=== PATIENT | female | born 1945 | race Caucasian/White ===

== ENCOUNTER → 2019-05-07 09:00 | Outpatient (BNVA) | payer MEDICARE, SELFPAY | PROVIDERS: Family Provider Family Medicine; PCP Nurse Practitioner Family; Visit Provider Nurse Practitioner Family | DX: Z12.39 Encounter for other screening for malignant neoplasm of breast (principal); Z13.820 Encounter for screening for osteoporosis; Z13.6 Encounter for screening for cardiovascular disorders; Z13.29 Encounter for screening for other suspected endocrine disorder; Z00.00 Encounter for general adult medical examination without abnormal findings; Z28.21 Immunization not carried out because of patient refusal; Z53.20 Procedure and treatment not carried out because of patient's decision for unspecified reasons | CPT/HCPCS: 80053; 80061; 84439; 84443 ==

== ENCOUNTER → 2019-05-14 08:59 | Outpatient (BNVA) | payer MEDICARE, SELFPAY | PROVIDERS: Family Provider Family Medicine; PCP Nurse Practitioner Family; Visit Provider Nurse Practitioner Family | DX: R73.9 Hyperglycemia, unspecified (principal) | CPT/HCPCS: 83036 ==

== ENCOUNTER 2019-06-23 14:30 | Outpatient (CLI) | payer MEDICARE, SELFPAY ==
--- NOTE | 2019-06-23 15:00 | MM_ITS ---
WS: [id number] BILATERAL DIGITAL SCREENING MAMMOGRAPHY WITH CAD CLINICAL INFORMATION: screening HISTORY: Screening mammogram. No current complaints. COMPARISON: None. TECHNIQUE: Bilateral CC and MLO views. FINDINGS: Scattered fibroglandular densities bilaterally. No suspicious focal mass, asymmetry, calcifications, or architectural distortion. No evidence of malignancy. Lucent centered calcification right breast. V ascular calcification. MM/[place] [id number] IMPRESSION: BI-RADS: 2-Benign FOLLOW UP: 1 Year Follow-up Recommend return to annual screening mammography.
== END 2019-06-23 14:31 | disposition home or self-care (01) ==
LOC: RADSHAW 14:35
PROVIDERS: PCP Nurse Practitioner Family; Visit Provider Nurse Practitioner Family
DX: Z12.31 Encounter for screening mammogram for malignant neoplasm of breast (principal)
CPT/HCPCS: 77067

== ENCOUNTER 2019-07-05 12:22 | Emergency (ER) | payer MEDICARE, SELFPAY ==
[2019-07-05 12:30] VITALS: BP 163/73; PULSE 68; RESP 14; TEMP 36.8; O2SAT 97; BMI 31.5
--- NOTE | 2019-07-05 12:42 | W.ED.GIBLEED ---
HPI - GI Bleed General: Chief complaint: GI Bleed Stated complaint: rectal bleeding Time Seen by Provider: 07/05/19 12:36 Source: patient Mode of arrival: ambulatory Limitations: no limitations History of Present Illness: HPI Narrative: 73-year-old female states she ate some yesterday and started feeling abdominal cramping and sick to her stomach. She states she had one episode of vomiting and had diarrhea. Patient states that since a diarrhea episode she has had small amount of bloody stools. States blood is bright red in nature. Denies any worsening or improving factors. She denies any weakness. She has very slight cramping currently. Associated symptoms: Reports nausea; Denies chills, easy bruising, fever(s), headache(s) or rash Review of Systems Const: Denies: fever(s), chills, body aches or change in appetite Eyes: Denies: blurry vision or eye discomfort ENMT: Denies: throat pain or dental pain Card: Denies: chest pain Resp: Denies: dyspnea GI: Reports: nausea and hematochezia : Denies: dysuria Musc: Denies: neck pain or back pain Skin/Breast: Denies: rash Neuro: Denies: headache(s) Psych: Denies: depression Mukesh/Lymph: Denies: easy bruising All/Imm: Denies: urticaria PFSH ED PFSH: Medical History Anxiety and depression Enrolled in chronic care management Fibromyalgia Hyperlipidemia Hypertension Family History Other Cancer Hypertension Social History Smoking and tobacco status: never smoked Alcohol intake: never Physical Exam Const: COMMON NORMALS: no acute distress, patient oriented x3 and healthy appearing HENMT: COMMON NORMALS: normocephalic and atraumatic HEAD & SCALP: normocephalic and atraumatic Eye: COMMON NORMALS: Equal, round and reactive pupils present and EOMs intact bilaterally PUPIL: Yes Equal, round and reactive pupils present Neck/C-Spine: COMMON NORMALS: full ROM and supple Chest: COMMONS NORMALS: normal inspection of the chest and normal palpation of entire chest wall Resp: COMMON NORMALS: normal respiratory effort, No retractions, No use of accessory muscles and clear to auscultation bilaterally AUSCULTATION: clear to auscultation bilaterally Cardio: COMMON NORMALS: regular rate, regular rhythm and No murmurs present (Cardio) RATE: regular rate RHYTHM: regular rhythm GI: COMMON NORMALS: Normal to inspection, nondistended, normoactive bowel sounds present, Soft to palpation, non-tender and no masses PALPATION: Yes Soft to palpation : OTHER: Slight amount of blood on rectal exam with small anal fissure Extremity: COMMON NORMALS: normal to inspection and full ROM Neuro: COMMON NORMALS: patient oriented x3, moves all extremities and no focal motor deficits Psych: COMMON NORMALS: mental status grossly normal, Normal thought process present and cooperative THOUGHT PROCESS: Normal thought process present Skin: COMMON NORMALS: no rashes or lesions noted and no wounds GENERAL SKIN EXAM: no rashes or lesions noted Course Vital Signs: Vital signs: Vital Signs Temperature 98.2 F 07/05/19 12:30 Pulse Rate 68 07/05/19 12:30 Respiratory Rate 14 07/05/19 12:30 Blood Pressure 163/73 07/05/19 12:30 Pulse Oximetry 97 07/05/19 12:30 MDM - GI Bleed MDM Narrative: Medical decision making narrative: Patient presents here with a likely anal fissure with a small GI bleed. She has no large amount of blood and her hemoglobin is normal. Patient is to follow-up with her primary care doctor in 3 to 5 days. I informed her if her blood in her stool does not stop in 1 to 2 days or worsen she is to return here. Patient understands and agrees the plan. She has no pain here. Lab Data: Labs: Lab Results 07/05/19 07/05/19 Range/Units 13:02 13:02 WBC 8.8 (4.0-10.0) 10^3/ uL RBC 4.55 (4.1-5.3) 10^6/u L Hgb 13.9 (11.5-15.3) g/dL Hct 40.6 (37.0-47.0) % MCV 89.2 (81-99) fL MCH 30.5 (28.0-34.0) pg MCHC 34.2 (30.0-36.0) g/dL RDW 12.7 (12.1-15.1) % Plt Count 228 (130-400) 10^3/c mm MPV 9.6 (7.4-10.4) fL Neut % (Auto) 68.0 % Lymph % (Auto) 21.3 % [place] % (Auto) 8.0 % Eos % (Auto) 1.7 % Baso % (Auto) 0.7 % Neut # (Auto) 6.0 (1.8-7.7) 10^3/u L Lymph # (Auto) 1.9 (0.8-4.8) 10^3/u L [place] # (Auto) 0.7 (0.2-0.9) 10^3/u L Eos # (Auto) 0.2 (0.0-0.8) 10^3/u L Baso # (Auto) 0.1 (0.0-0.1) 10^3/u L Nucleated RBC % (a uto) 0 % Nucleated RBCs # 0.0 /100WBC Sodium 142 (136-145) mmol/L Potassium 3.9 (3.5-5.1) mmol/L Chloride 103 (98-107) mmol/L Carbon Dioxide 25 (22-29) mmol/L Anion Gap 17.9 (5-19) BUN 11 (8-23) mg/dL Creatinine 0.9 (0.5-0.9) mg/dL Glucose 120 H (65-115) mg/dL Calculated Osmolal ity 291 (285-295) mOsm/k g Calcium 9.3 (8.5-10.5) mg/dL Total Bilirubin 0.6 (0.15-1.2) mg/dL AST 17 (0-32) U/L ALT 12 (0-33) U/L Alkaline Phosphata se 91 (35-105) IU/L Total Protein 6.2 L (6.6-8.7) g/dL Albumin 4.2 (3.5-5.2) g/dL Globulin 2.0 (1.3-4.6) g/dL Lipase 22 (13-60) U/L Discharge Plan Discharge Patient Disposition: Home, Self-Care Clinical Impression: Lower gastrointestinal hemorrhage Condition: Stable Prescriptions: New Zofran 4 mg tablet 4 mg PO QID PRN (Reason: nausea and vomiting) Qty: 14 RF: 0 No Action simvastatin 10 mg tablet 10 mg PO DAILY RF: 0 lisinopril 40 mg tablet 40 mg PO DAILY RF: 0 cholecalciferol (vitamin D3) 2,000 unit tablet 2,000 unit PO DAILY RF: 0 indomethacin 50 mg capsule 50 mg PO TID RF: 0 aspirin [Adult Aspirin Regimen] 81 mg tablet,delayed release (DR/EC) 81 mg PO DAILY RF: 0 nitroglycerin [Nitrostat] 0.4 mg tablet, sublingual 0.4 mg SUBLINGUAL Q5M PRN (Reason: Chest Pain) RF: 0 metoprolol tartrate 50 mg tablet 50 mg PO BID Qty: 180 RF: 3 amlodipine 5 mg tablet 5 mg PO DAILY Qty: 30 RF: 11 Imodium A-D 2 mg Tablet 2 mg PO Q4H PRN (Reason: Diarrhea) RF: 0 Discharge Orders: Discharge Order (Routine); Ordered 07/05/19 Ordered By: Kemal Ko Referrals: Delores Rodrigues NP [Primary Care Provider] - 1-3 days Discharge Diet: Advance as tolerated Discharge Activity: Resume usual activity Patient Instructions: Rectal Bleeding (ED) Coding Level of Care Code ED Data Network Architect for Chg Fwd Exam Comprehensive
[2019-07-05] MEDS: sodium chloride 0.9% 1,000 ML 999 ML IV (13:00)
[2019-07-05] MEDS: ondansetron 2 mg/ML SDV 2 mL 4 MG IVP (13:01)
[2019-07-05 13:17] LABS: Basophils # 0.1 10^3/uL (0.0-0.1); Basophils % 0.7 %; Eosinophils # 0.2 10^3/uL (0.0-0.8); Eosinophils % 1.7 %; Hematocrit 40.6 % (37.0-47.0); Hemoglobin 13.9 g/dL (11.5-15.3); Lymphocytes # 1.9 10^3/uL (0.8-4.8); Lymphocytes % 21.3 %; Mean Corpuscular HGB Conc 34.2 g/dL (30.0-36.0); Mean Corpuscular Hemoglobin 30.5 pg (28.0-34.0); Mean Corpuscular Volume 89.2 fL (81-99); Mean Platelet Volume 9.6 fL (7.4-10.4); Monocytes # 0.7 10^3/uL (0.2-0.9); Nucleated Red Blood Cells % 0 %; Platelet Count 228 10^3/cmm (130-400); Red Blood Count 4.55 10^6/uL (4.1-5.3); Red Cell Distribution Width 12.7 % (12.1-15.1); White Blood Count 8.8 10^3/uL (4.0-10.0)
[2019-07-05 13:44] LABS: Alanine Aminotransferase 12 U/L (0-33); Albumin Level 4.2 g/dL (3.5-5.2); Alkaline Phosphatase 91 IU/L (35-105); Anion Gap 17.9 (5-19); Aspartate Amino Transferase 17 U/L (0-32); Blood Urea Nitrogen 11 mg/dL (8-23); Calcium 9.3 mg/dL (8.5-10.5); Carbon Dioxide 25 mmol/L (22-29); Chloride 103 mmol/L (98-107); Glucose 120 mg/dL (65-115); Lipase 22 U/L (13-60); Osmolality Calculated 291 mOsm/kg (285-295); Potassium 3.9 mmol/L (3.5-5.1); Sodium 142 mmol/L (136-145); Total Bilirubin 0.6 mg/dL (0.15-1.2); Total Protein 6.2 g/dL (6.6-8.7)
[2019-07-05 14:22] VITALS: BP 136/61; PULSE 57; RESP 16; TEMP 36.4; O2SAT 96
== END 2019-07-05 14:08 | disposition home or self-care (01) ==
PROVIDERS: Emergency Provider Emergency Medicine; PCP Nurse Practitioner Family
DX: K92.2 Gastrointestinal hemorrhage, unspecified (principal); Z79.82 Long term (current) use of aspirin; E78.5 Hyperlipidemia, unspecified; I10 Essential (primary) hypertension
CPT/HCPCS: 12345; 80053; 83690; 85025; 96361; 96374; 96375; 99283; J2405; J7030

== ENCOUNTER 2019-07-17 14:56 | Outpatient (CLI) | payer MEDICARE, SELFPAY ==
--- NOTE | 2019-07-17 15:15 | XR_ITS ---
WS: [id number] SCREENING DEXA SCAN [employer] CLINICAL INFORMATION: post menopausal COMPARISON: None. FINDINGS: The L1-L4 bone mineral density measures 1.274 g/cm2. This corresponds to a T score score of 0.8 and Z score of 2.2. Left femoral neck bone mineral density measures 1.093 g/cm2. This corresponds to a T score of 0.7 and Z score of 2.2. Right femoral neck bone mineral density measures 1.056 g/cm2. This corresponds to a T score 0.4of and Z score of 1.9. Mean femoral neck bone mineral density measures 1.075 g/cm2. This corresponds to a T score of 0.5 and Z score of 2.0. XR/XR DEXA axial skeleton* [id number] IMPRESSION: Normal bone mineralization. Patient's FRAX calculated 10 year probability for major osteoporotic fracture i s 8.1 % and osteoporotic hip fracture is 0.8%.
== END 2019-07-17 14:57 | disposition home or self-care (01) ==
LOC: RADWPI 15:03
PROVIDERS: Family Provider Nurse Practitioner Family; PCP Nurse Practitioner Family; Visit Provider Nurse Practitioner Family
DX: Z78.0 Asymptomatic menopausal state (principal)
CPT/HCPCS: 77080

== ENCOUNTER 2019-07-31 08:35 | Day surgery (SDC) | payer MEDICARE, SELFPAY ==
[2019-07-29 13:14] VITALS: BMI 31.7
[2019-07-31 09:02] VITALS: BP 175/81; PULSE 62; RESP 18; TEMP 35.9; O2SAT 98
--- NOTE | 2019-07-31 09:12 | ANES.PREANE2 ---
Pre-Anesthetic Assessment Pre-Anesthetic Assessment: Height/Weight: Height 1.55 m Weight 76.204 kg Temp Pulse Resp BP Pulse Ox 96.6 F L 62 18 175/81 98 07/31/19 09:02 07/31/19 09:02 07/31/19 09:02 07/31/19 09:02 07/31/19 09:02 Preop Diagnosis: c Proposed Procedure: Operation Date: 07/31/19 09:25 Proposed Procedures p Colonoscopy 94545 Z80.0(Not Applicable) - Freeman Gaytan MD Last intake: Intake Last Liquid Date 07/30/19 Last Liquid Time 19:00 Last Solid Date 07/29/19 Last Solid Time 18:00 Social: Social History: No alcohol and No tobacco Exam: Pre-Anes Outpt Exam: alert, oriented x 3, clear to auscultation bilaterally and regular rate & rhythm Airway: Cervical ROM: WNL MP: 2 Dentition: False (upper) History/ROS: No significant history except as noted Pulmonary: Pulmonary: BAILEY CV/HEM: CV/HEM: HTN : : None reported Hepatic: Hepatic: None reported GI: GI: GERD (not well controlled) Metabolic: Metabolic: Hyperlipidemia Musc/skel: Musc/skel: OA/DJD Neuropsych: Neuropsych: Anxiety and Depression Anesthetic Plan: ASA status: 3 Anesthesia: Anesthesia Evaluation and MAC Risk of > 500 ml blood loss (7ml/kg in children): No PFSH Anesthesia PFSH: Medical History Anxiety and depression Enrolled in chronic care management Fibromyalgia Hyperlipidemia Hypertension Family History Other Cancer Hypertension Social History Smoking and tobacco status: never smoked Alcohol intake: never Data Anesthesia Cardiac Studies: No Data to Display
[2019-07-31] MEDS: sodium chloride 0.9% 1,000 ML 30 ML IV (09:25)
--- NOTE | 2019-07-31 10:00 | W.PM.OPSUD ---
Surgery/Procedure H&P Update DATE OF PROCEDURE: July 31, 2019 DATE H&P PERFORMED: 07/23/19 PREOP DIAGNOSIS: c PLANNED PROCEDURE: Operation Date: 07/31/19 09:25 Proposed Procedures p Colonoscopy 30453 Z80.0(Not Applicable) - Freeman Gaytan MD
[2019-07-31 10:20] VITALS: BP 92/52; PULSE 60; RESP 16; TEMP 36.3; O2SAT 97
--- NOTE | 2019-07-31 10:23 | ANE.PACU2 ---
Inpatient post-anesthesia follow up: Airway intact: Yes Vital signs: Temperature 97.4 F Pulse Rate 60 Respiratory Rate 16 Blood Pressure 92/52 Pulse Oximetry 97 Oxygen Delivery Me thod Nasal Cannula Oxygen Flow Rate 3 Fraction of Inspir ed Oxygen Hydration adequate: Yes Nausea and vomiting: No Pain level: 1 Mental status: Baseline
[2019-07-31 10:28] VITALS: BP 110/59; PULSE 67; RESP 18; O2SAT 98
== END 2019-07-31 10:50 | disposition home or self-care (01) ==
PROVIDERS: PCP Nurse Practitioner Family; Visit Provider Internal Medicine
PROC: 0DJD8ZZ Inspection of Lower Intestinal Tract, Via Natural or Artificial Opening Endoscopic (ICD-10-PCS; CPT 45378; principal; 2019-07-31 09:25)
DX: K92.1 Melena (principal); Z80.0 Family history of malignant neoplasm of digestive organs; D12.4 Benign neoplasm of descending colon; D12.3 Benign neoplasm of transverse colon; K57.30 Diverticulosis of large intestine without perforation or abscess without bleeding; Z86.010 Personal history of colon polyps; Z79.82 Long term (current) use of aspirin; F41.9 Anxiety disorder, unspecified; F32.9 Major depressive disorder, single episode, unspecified; M79.7 Fibromyalgia; I10 Essential (primary) hypertension
CPT/HCPCS: 12345; 45385; 88305; J2704; J7030

== ENCOUNTER → 2019-11-26 10:56 | Outpatient (BNVA) | payer MEDICARE, SELFPAY | PROVIDERS: PCP Nurse Practitioner Family; Visit Provider Nurse Practitioner Family | DX: R73.9 Hyperglycemia, unspecified (principal); I10 Essential (primary) hypertension | CPT/HCPCS: 80053; 83036; 84439; 84443 ==

== ENCOUNTER → 2020-05-17 10:00 | Outpatient (BNVA) | payer MEDICARE, SELFPAY | PROVIDERS: PCP Nurse Practitioner Family; Visit Provider Family Medicine | DX: R79.89 Other specified abnormal findings of blood chemistry (principal) | CPT/HCPCS: 80053; 84439; 84443; 86376 ==

== ENCOUNTER → 2020-12-27 07:54 | Outpatient (BNVA) | payer MEDICARE, SELFPAY | PROVIDERS: PCP Nurse Practitioner Family; Visit Provider Nurse Practitioner Family | DX: E78.5 Hyperlipidemia, unspecified (principal); I10 Essential (primary) hypertension; Z68.32 Body mass index [BMI] 32.0-32.9, adult | CPT/HCPCS: 80053; 80061 ==

== ENCOUNTER 2021-05-31 22:54 | Emergency (ER) | payer MEDICARE, SELFPAY ==
[2021-05-31 22:50] VITALS: BP 181/88; PULSE 75; RESP 14; TEMP 36.9; O2SAT 96; BMI 31.1
--- NOTE | 2021-05-31 22:52 | ECG_ITS ---
[facility] Test Date: 2021-05-31 Pat Name: Althea Gayle Department: Room: Gender: Female Dining Server: : 1945 Requested By: Kemal Ko Order Number: [id number] [place] MD: Tara Norwood M.D. Measurements Intervals [place] Rate: 69 P: 76 VT: 149 QRS: 12 QRSD: 78 T: 35 QT: 391 QTc: 421 Interpretive Statements SINUS RHYTHM LOW QRS VOLTAGE IN PRECORDIAL LEADS [QRS DEFLECTION < 1.0 mV IN CHEST LEADS] ST DEVIATION AND MODERATE T-WAVE ABNORMALITY, CONSIDER ANTERIOR ISCHEMIA [-0.1+ mV T-WAVE IN V3/V4] Compared to ECG 09/26/2014 10:40:56 Low QRS voltage now present T-wave abnormality now present Possible ischemia now present ST (T wave) deviation no longer present Electronically Signed On 05-31-2021 23:18:37 CDT by Tara Norwood M.D. [id number]
--- NOTE | 2021-05-31 22:54 | XRR_ITS ---
PROCEDURE INFORMATION: Exam: XR Chest Exam date and time: 05/31/2021 11:01 PM Age: 75 years old Clinical indication: Chest pressure; Patient HX: C/O chest pain with hypertension. ; Additional info: Cp TECHNIQUE: Imaging protocol: XR of the chest. Views: 1 view. COMPARISON: CR Chest 1 view [id number] 09/24/2014 2:14 PM FINDINGS: Lungs: Unremarkable. No consolidation. Pleural spaces: Unremarkable. No pleural effusion. No pneumothorax. Heart/Mediastinum: Unremarkable. No cardiomegaly. Bones/joints: Unremarkable. XR/XR chest 1V portable [id number] IMPRESSION: No acute findings.
[2021-05-31 23:26] LABS: Basophils % 0.4 %; Eosinophils % 0.4 %; Hematocrit 42.2 % (37.0-47.0); Hemoglobin 14.5 g/dL (11.5-15.3); Lymphocytes # 1.1 10^3/uL (0.8-4.8); Lymphocytes % 11.1 %; Mean Corpuscular HGB Conc 34.4 g/dL (30.0-36.0); Mean Corpuscular Hemoglobin 30.3 pg (28.0-34.0); Mean Corpuscular Volume 88.1 fl (81-99); Mean Platelet Volume 9.5 fL (7.4-10.4); Monocytes # 0.8 10^3/uL (0.2-0.9); Monocytes % 7.7 %; Neutrophils # 8.18 10^3/uL (1.8-7.7); Nucleated Red Blood Cells % 0 %; Platelet Count 225 10^3/cmm (130-400); Red Blood Count 4.79 10^6/uL (4.1-5.3); Red Cell Distribution Width 12.6 % (12.1-15.1); White Blood Count 10.2 10^3/uL (4.0-10.0)
[2021-05-31] MEDS: aspirin 81 mg Chew Tablet 324 MG PO (23:39)
[2021-05-31 23:42] LABS: Alanine Aminotransferase 32 U/L (0-33); Albumin Level 4.2 g/dL (3.5-5.2); Alkaline Phosphatase 142 IU/L (35-105); Anion Gap 16.5 (5-19); Aspartate Amino Transferase 59 U/L (0-32); Blood Urea Nitrogen 10 mg/dL (8-23); Calcium 8.6 mg/dL (8.5-10.5); Carbon Dioxide 25 mmol/L (22-29); Chloride 102 mmol/L (98-107); Globulin 2.1 g/dL (1.3-4.6); Glucose 145 mg/dL (65-115); Osmolality Calculated 292 mOsm/kg (285-295); Potassium 3.5 mmol/L (3.5-5.1); Sodium 140 mmol/L (136-145); Total Bilirubin 0.4 mg/dL (0.15-1.2); Total Protein 6.3 g/dL (6.6-8.7)
[2021-05-31 23:43] LABS: Troponin(5th) Baseline 11 ng/L (0-10)
--- NOTE | 2021-05-31 23:53 | W.ED.GENADLT ---
HPI - General Adult General: Chief complaint: General Medical Stated complaint: HTN, cp Source: patient and EMS Mode of arrival: EMS Limitations: no limitations History of Present Illness: 75-year-old female states that she had eaten a pork sandwich tonight sat down and started having some chest pain abdominal pain states it was a sharp pain in the center of her chest along with her abdomen started having some high blood pressure she does have a history of high blood pressure states the pain is improved currently cramping type pain she rates a 2 out of 10 denies any dyspnea or diaphoresis denies any worsening improving factors. No vomiting or diarrhea Associated symptoms: Reports chest pain; Deny dyspnea, headache(s) or rash Review of Systems Const: Denies: fever(s), chills, body aches or change in appetite Eyes: Denies: blurry vision or eye discomfort ENMT: Denies: throat pain or dental pain Card: Reports: chest pain Resp: Denies: dyspnea GI: Reports: abdominal pain : Denies: dysuria Musc: Denies: neck pain or back pain Skin/Breast: Denies: rash Neuro: Denies: headache(s) Psych: Denies: depression Mukesh/Lymph: Denies: easy bruising All/Imm: Denies: urticaria PFSH ED PFSH: Medical History (Updated 06/01/21 @ 02:01 by Kemal oK MD) Anxiety and depression Enrolled in chronic care management Fibromyalgia Hyperlipidemia Hypertension Family History Other Cancer Hypertension Social History Smoking and tobacco status: never smoked Alcohol intake: never Current occupation: RETIRED Physical Exam Const: COMMON NORMALS: no acute distress, patient oriented x3 and healthy appearing HENMT: COMMON NORMALS: normocephalic and atraumatic HEAD & SCALP: normocephalic and atraumatic Eye: COMMON NORMALS: Equal, round and reactive pupils present and EOMs intact bilaterally PUPIL: Yes Equal, round and reactive pupils present Neck/C-Spine: COMMON NORMALS: full ROM and supple Chest: COMMONS NORMALS: normal inspection of the chest and normal palpation of entire chest wall Resp: COMMON NORMALS: normal respiratory effort, No retractions, No use of accessory muscles and clear to auscultation bilaterally AUSCULTATION: clear to auscultation bilaterally Cardio: COMMON NORMALS: regular rate, regular rhythm and No murmurs present (Cardio) RATE: regular rate RHYTHM: regular rhythm GI: COMMON NORMALS: Normal to inspection, nondistended, normoactive bowel sounds present, Soft to palpation, non-tender and no masses PALPATION: Yes Soft to palpation Extremity: COMMON NORMALS: normal to inspection and full ROM Neuro: COMMON NORMALS: patient oriented x3, moves all extremities and no focal motor deficits Psych: COMMON NORMALS: mental status grossly normal, Normal thought process present and cooperative THOUGHT PROCESS: Normal thought process present Skin: COMMON NORMALS: no rashes or lesions noted and no wounds GENERAL SKIN EXAM: no rashes or lesions noted Course Vital Signs: Vital signs: Vital Signs Temperature 98.5 F 06/01/21 01:53 Pulse Rate 73 06/01/21 01:53 Respiratory Rate 16 06/01/21 01:53 Blood Pressure 157/84 06/01/21 01:53 Pulse Oximetry 96 06/01/21 01:53 [facility] - General Adult Medical Decision Making Patient presents for chest and abdominal pains atypical in nature could be some indigestion white count and troponins here are normal her exam at discharge is benign she feels much improved she is stable for discharge is to return if worsening in follow-up with her PCP she understands agrees to plan. Lab Data : 05/31/21 23:20 05/31/21 23:20 Radiology Impressions Chest X-Ray 05/31/21 22:54 IMPRESSION: No acute findings. Laboratory Results WBC 10.2 10^3/uL (4.0-10.0) H 05/31/21 23:20 RBC 4.79 10^6/uL (4.1-5.3) 05/31/21 23:20 Hgb 14.5 g/dL (11.5-15.3) 05/31/21 23:20 Hct 42.2 % (37.0-47.0) 05/31/21 23:20 MCV 88.1 fl (81-99) 05/31/21 23:20 MCH 30.3 pg (28.0-34.0) 05/31/21 23:20 MCHC 34.4 g/dL (30.0-36.0) 05/31/21 23:20 RDW 12.6 % (12.1-15.1) 05/31/21 23:20 Plt Count 225 10^3/cmm (130-400) 05/31/21 23:20 MPV 9.5 fL (7.4-10.4) 05/31/21 23:20 Neut % (Auto) 80.0 % 05/31/21 23:20 Lymph % (Auto) 11.1 % 05/31/21 23:20 [place] % (Auto) 7.7 % 05/31/21 23:20 Eos % (Auto) 0.4 % 05/31/21 23:20 Baso % (Auto) 0.4 % 05/31/21 23:20 Neut # (Auto) 8.18 10^3/uL (1.8-7.7) H 05/31/21 23:20 Lymph # (Auto) 1.1 10^3/uL (0.8-4.8) 05/31/21 23:20 [place] # (Auto) 0.8 10^3/uL (0.2-0.9) 05/31/21 23:20 Eos # (Auto) 0.0 10^3/uL (0.0-0.8) 05/31/21 23:20 Baso # (Auto) 0.0 10^3/uL (0.0-0.1) 05/31/21 23:20 Nucleated RBC % (auto) 0 % 05/31/21 23:20 Nucleated RBCs # 0.0 /100WBC 05/31/21 23:20 Sodium 140 mmol/L (136-145) 05/31/21 23:20 Potassium 3.5 mmol/L (3.5-5.1) 05/31/21 23:20 Chloride 102 mmol/L (98-107) 05/31/21 23:20 Carbon Dioxide 25 mmol/L (22-29) 05/31/21 23:20 Anion Gap 16.5 (5-19) 05/31/21 23:20 BUN 10 mg/dL (8-23) 05/31/21 23:20 Creatinine 0.8 mg/dL (0.5-0.9) 05/31/21 23:20 GFR Calculation Not Reportable 05/31/21 23:20 Glucose 145 mg/dL (65-115) H 05/31/21 23:20 Calculated Osmolality 292 mOsm/kg (285-295) 05/31/21 23:20 Calcium 8.6 mg/dL (8.5-10.5) 05/31/21 23:20 Total Bilirubin 0.4 mg/dL (0.15-1.2) 05/31/21 23:20 AST 59 U/L (0-32) H 05/31/21 23:20 ALT 32 U/L (0-33) 05/31/21 23:20 Alkaline Phosphatase 142 IU/L (35-105) H 05/31/21 23:20 Troponin T Baseline 11 ng/L (0-10) H 05/31/21 23:20 Troponin T 120 Minute 11.64 ng/L (0-10) H 06/01/21 01:10 Delta Troponin T 0.64 ABS# (0-10) 06/01/21 01:10 Total Protein 6.3 g/dL (6.6-8.7) L 05/31/21 23:20 Albumin 4.2 g/dL (3.5-5.2) 05/31/21 23:20 Globulin 2.1 g/dL (1.3-4.6) 05/31/21 23:20 EKG Data EKG 1: I personally reviewed and interpreted this EKG as follows: EKG interpretation date: 05/31/21 EKG interpretation time: 23:16 Interpretation: nsr hr [address] or t wave abnormalities qrs 78 qtc 411 Computer generated interpretation: Chest X-Ray 05/31/21 22:54 IMPRESSION: No acute findings. Discharge Plan Discharge Patient Disposition: Home Clinical Impression: Hypertension Chest pain Qualifiers: Chest pain type: unspecified Qualified Code(s): R07.9 - Chest pain, unspecified Condition: Stable Prescriptions: No Action aspirin [Adult Aspirin Regimen] 81 mg tablet,delayed release (DR/EC) 81 mg PO DAILY 0RF nitroglycerin [Nitrostat] 0.4 mg tablet, sublingual 0.4 mg SUBLINGUAL Q5M PRN (Reason: Chest Pain) 0RF lisinopril 40 mg tablet 40 mg PO BEDTIME Qty: 90 2RF amlodipine 5 mg tablet See Rx Instructions .ROUTE .COMPLEX Qty: 90 3RF Dose Instruction: TAKE 1 TABLET EVERY DAY Rx Instructions: TAKE 1 TABLET EVERY DAY simvastatin 10 mg tablet See Rx Instructions .ROUTE .COMPLEX Qty: 90 1RF Dose Instruction: TAKE 1 TABLET AT BEDTIME Rx Instructions: TAKE 1 TABLET AT BEDTIME benzonatate 200 mg capsule 200 mg PO TID PRN (Reason: cough) 7 Days Qty: 21 0RF metoprolol tartrate 50 mg tablet See Rx Instructions .ROUTE .COMPLEX Qty: 180 0RF Dose Instruction: TAKE 1 TABLET TWICE DAILY Rx Instructions: TAKE 1 TABLET TWICE DAILY loperamide [Imodium A-D] 2 mg Tablet 2 mg PO Q4H PRN (Reason: Diarrhea) 0RF Discharge Orders: Discharge ED (Routine); Ordered 06/01/21 Ordered By: Kemal Ko Referrals: Delores Rodrigues NP [Primary Care Provider] - 1-3 days Discharge Diet: Advance as tolerated Discharge Activity: Resume usual activity Coding Level of Care Code ED Airline Lounge Receptionist for Pino Fwd Exam Comprehensive
[2021-06-01 01:47] LABS: Troponin 5 2HR 11.64 ng/L (0-10)
[2021-06-01 01:52] LABS: Troponin 5 2HR Delta 0.64 ABS# (0-10)
[2021-06-01 01:53] VITALS: BP 157/84; PULSE 73; RESP 16; TEMP 36.9; O2SAT 96
[2021-06-01 02:08] VITALS: BP 157/84; PULSE 73; RESP 16; TEMP 36.9; O2SAT 96
== END 2021-06-01 02:10 | disposition home or self-care (01) ==
PROVIDERS: Emergency Provider Emergency Medicine; PCP Nurse Practitioner Family
DX: R07.9 Chest pain, unspecified (principal); I10 Essential (primary) hypertension
CPT/HCPCS: 71045; 80053; 84484; 85025; 93005; 99283

== ENCOUNTER → 2021-10-12 09:54 | Outpatient (BNVA) | payer MEDICARE, SELFPAY | PROVIDERS: PCP Nurse Practitioner Family; Visit Provider Nurse Practitioner Family | DX: I10 Essential (primary) hypertension (principal); R73.09 Other abnormal glucose; E78.5 Hyperlipidemia, unspecified; Z68.30 Body mass index [BMI] 30.0-30.9, adult | CPT/HCPCS: 80053; 80061; 83036; 84443 ==